=== PATIENT | female | born 1940 | race Caucasian/White ===

== ENCOUNTER 2022-06-21 14:40 | Inpatient (IN) | payer OTHER, MEDICAID ==
[~2022-06-21] VITALS: Ht 167.6 cm; Wt 54.0 kg
[2022-06-21] MEDS ORDERED: NACL 0.9% 1,000 ML IV SCH ×2 (14:50→17:45)
--- NOTE | 2022-06-21 14:56 | NUR ---
BIBA FROM SNF D/T LOW BP NOTED BY FACILITY WITH LOW O2 SAT. BP 88/34 ATBEDSIDE, O2 @ 96% RA AT BEDSIDE. AFEBRILE OF 96.5 RECTAL AT BEDSIDE. AAOX2, NONVERBAL, LEFT SIDED DEFICIT D/T STROKE HX. ON MONITOR, IV ESTABLISHED ON L AC 20G BY EMS CHARGER OPERATOR. NO WOUNDS NOTED, OLD FULLY HEALED SACRAL WOUND NOTED, NOT OPEN.
[2022-06-21 14:57] VITALS: BP 88/34
[2022-06-21 15:35] LABS: BASOPHILS % (AUTO) 0.2 % (0.0-2.0); EOSINOPHILS % (AUTO) 0.5 % (0.0-4.0); HEMATOCRIT 44.7 % (36-48); HEMOGLOBIN 14.5 g/dL (12.0-16.0); LYMPHOCYTES # (AUTO) 2.5 K/uL (2.5-16.5); LYMPHOCYTES % (AUTO) 29.2 % (20.5-51.1); MEAN CORPUSCULAR HEMOGLOBIN 30 pg (27-31); MEAN CORPUSCULAR HGB CONC 32 g/dL (33-37); MEAN CORPUSCULAR VOLUME 91.6 fL (80-94); MONOCYTES # (AUTO) 0.2 K/uL (0.8-1.0); MONOCYTES % (AUTO) 2.5 % (1.7-9.3); NEUTROPHILS # (AUTO) 5.7 K/uL (1.8-7.7); NEUTROPHILS % (AUTO) 67.6 % (42.2-75.2); PLATELET COUNT (AUTO) 206 K/uL (140-450); RED BLOOD CELL COUNT(AUTO) 4.88 MIL/uL (4.20-5.40); RED CELL DISTRIBUTION WIDTH 13.8 % (11.6-13.7); WHITE BLOOD COUNT (AUTO) 8.4 K/uL (4.8-10.8)
[2022-06-21] MEDS ORDERED: DOCU-299 PO (15:36)
[2022-06-21] MEDS ORDERED: ASPI-1822 PO (15:36)
[2022-06-21] MEDS ORDERED: ATOR40TA PO (15:36)
[2022-06-21] MEDS ORDERED: MIRT-91 PO (15:36)
[2022-06-21 15:45] LABS: PROTHROMBIN TIME 10.4 secs (10.8-13.4)
[2022-06-21 15:51] LABS: ALBUMIN 2.9 g/dL (3.4-5.0); ANION GAP 14.8 (8-16); ASPARTATE AMINOTRANSFERASE 25 U/L (15-37); CARBON DIOXIDE 26.9 mmol/L (21-32); CHLORIDE 107 mmol/L (98-107); CREATININE 0.9 mg/dL (0.6-1.3); GLUCOSE 170 mg/dL (74-106); POTASSIUM 3.7 mmol/L (3.5-5.1); SODIUM SERUM 145 mmol/L (136-145); TOTAL BILIRUBIN 0.5 mg/dL (0.0-1.0); UREA NITROGEN, BLOOD 15 mg/dL (7-18)
--- NOTE | 2022-06-21 16:15 | NUR ---
LEWIS INSERTED WITH 16FR
[2022-06-21] MEDS ORDERED: NACL 0.9% 1,000 ML IV ONE ×2 (16:30→17:50)
[2022-06-21] MEDS ORDERED: PIPERACILLIN/TAZOBACTAM 3.375 GM in DEXTROSE 5% 50 ML IV ONE (16:30)
[2022-06-21] MEDS ORDERED: VANCOMYCIN 1,000 MG in DEXTROSE 5% 250 ML IV ONE (16:30)
[2022-06-21] MEDS ORDERED: PIPERACILLIN/TAZOBACTAM 3.375 GM VIAL IV ONE ×2 (16:42→22:14)
[2022-06-21] MEDS ORDERED: VANCOMYCIN 1,000 MG VIAL ONE (16:42)
[2022-06-21 17:11] LABS: APPEARANCE,URINE HAZY (CLEAR); BILIRUBIN,URINE NEGATIVE (NEGATIVE); BLOOD, URINE 1+ (NEGATIVE); COLOR,URINE AMBER (YELLOW); LEUKOCYTE ESTERASE ,URINE 3+ (NEGATIVE); NITRITE, URINE POSITIVE (NEGATIVE); UGLUCOSE NEGATIVE (NEGATIVE)
[2022-06-21 17:28] LABS: OTHER CASTS, URINE None Seen /LPF (None Seen)
--- NOTE | 2022-06-21 17:44 | NUR ---
CONTACT INFO FOR SISTERSHANI [phone]
[2022-06-21] MEDS ORDERED: ONDANSETRON 4 MG/2 ML VIAL IVP PRN ×2 (17:45→17:55)
[2022-06-21] MEDS ORDERED: ACETAMINOPHEN 325 MG TAB PO PRN ×2 (17:45→17:55)
[2022-06-21] MEDS ORDERED: MORPHINE SULFATE 2 MG/ML SYR IVP PRN ×2 (17:45→17:55)
[2022-06-21] MEDS ORDERED: VANCOMYCIN PER PHARMACY MC PRN (17:50)
[2022-06-21] MEDS ORDERED: DOCUSATE SODIUM 100 MG GELCAP PO PRN (17:55)
[2022-06-21] MEDS ORDERED: POTASSIUM CHLORIDE 10 MEQ TABER PO PRN (17:55)
[2022-06-21] MEDS ORDERED: DEXTROSE 50% 50 ML SYR IVP PRN (17:55)
[2022-06-21] MEDS ORDERED: INSULIN LISPRO SLIDING SCALE 100 UNITS/ML VIAL SUBQ PRN (17:55)
[2022-06-21] MEDS ORDERED: ZOLPIDEM 10 MG TAB PO PRN (17:55)
--- NOTE | 2022-06-21 19:30 | NUR ---
receive awake, non-verbal. linens changed and positioned for comfort. F/C in place with no urine output noted
--- NOTE | 2022-06-21 21:00 | NUR ---
TRANSFERED TO 106A. REPORT GIVEN TO SAGAR RN/ PT ATTACHED TO CM, ACCOMPANIED BY RN AND ERT
--- NOTE | 2022-06-21 21:10 | NUR ---
ADMITTED THIS 82 YEAR OLD FEMALE FROM ER PER [facility] WITH CC OF HYPOXIA, TACHYCARDIA AND HYPOTENSION WITH DX OF SEPSIS, TRANSFERRED TO BED, ON O2 AT 2L VIA NASAL CANNULA WITH SAT OF 93%, BP-94/45, PT OPENS EYES BUT NONVERBAL, LEWIS CATHETER IN PLACE WITH CLEAR YELLOW URINE, IVF INFUSING WELL WITH NS AT 100ML/H, SKIN IS INTACT WITH HEALED SACRAL AND LEFT HIP ULCER, SACRAL AREA REDNESS NOTED, SITE COVERED WITH OPTIFOAM DRESSING, SAFETY MEASURES IN PLACE, FREQUENT ROUNDS WILL BE MADE, CALL LIGHT WITHIN REACH.
[2022-06-21 21:30] VITALS: BP 94/45
[2022-06-21] MEDS: BLOOD GLUCOSE MONITORING 1 DEV DEV FS SCH (21:53)
[2022-06-21] MEDS: PIPERACILLIN/TAZOBACTAM 3.375 GM in DEXTROSE 5% 50 ML IV SCH (22:24)
[2022-06-22] VITALS (16 sets, daily range): BP systolic 60–146; BP diastolic 28–75
[2022-06-22] MEDS ORDERED: MAG SULF 2000 MG/WATER PREMIX 50 ML IV PRN
[2022-06-22] MEDS: NACL 0.9% 1,000 ML IV SCH ×2 (00:15→09:30)
[2022-06-22] MEDS ORDERED: NACL 0.9% 1,000 ML IV SCH ×2 (03:35→08:25)
--- NOTE | 2022-06-22 03:45 | NUR ---
PT SLEEPING, OPEN EYES TO TOUCH, VITAL SIGNS TAKEN, BP-82/35, HR-102, SAT-94%, TEXTED DR GROVE AND GAVE NEW ORDERS, BOLUS OF NS 1 L STARTED, AND IF BP DOESN'T IMPROVE AFTER THE BOLUS, TRANSFER TO ICU AND START ON LEVOPHED DRIP, MONITORED CLOSELY.
--- NOTE | 2022-06-22 04:55 | NUR ---
1 L NS BOLUS DONE, BP-92/53, HR-90, SAT-95%, PT SLEEPING, OPEN EYES TO TOUCH, NO SOB NOTED, WILL CONTINUE TO MONITOR BLOOD PRESSURE CLOSELY, WILL ADMINISTER DUE ZOSYN IVPB AT THIS TIME.
[2022-06-22] MEDS ORDERED: PIPERACILLIN/TAZOBACTAM 3.375 GM VIAL IV ONE (05:00)
[2022-06-22] MEDS: PIPERACILLIN/TAZOBACTAM 3.375 GM in DEXTROSE 5% 50 ML IV SCH ×2 (05:02→13:00)
--- NOTE | 2022-06-22 06:00 | NUR ---
BP-86/33, HR-89, SAT-97%, CALLED ICU AND TALKED TO CHARGE NURSE YI FOR TRANSFER TO ICU AND START ON LEVOPHED DRIP, GAVE ICU BED 6 BUT STATED THEY WILL THE ROOM READY FIRST, WILL CALL WHEN THE TOOM IS READY, BLOOD SUGAR CHECKED WITH 122 RESULT, IVF INFUSING WELL, MONITORED CLOSELY.
[2022-06-22] MEDS: BLOOD GLUCOSE MONITORING 1 DEV DEV FS SCH ×4 (06:50→21:00)
--- NOTE | 2022-06-22 07:15 | NUR ---
PT TRANSFERRED TO ICU, REPORT GIVEN TO SJ METCALF, CALLED SISTER KIKI AND LEFT MESSAGE THAT PT GOT TRANSFERRED TO ICU DUE TO LOW BP.
[2022-06-22 07:29] LABS: BASOPHILS % (AUTO) 0.2 % (0.0-2.0); HEMATOCRIT 37.4 % (36-48); HEMOGLOBIN 12.3 g/dL (12.0-16.0); LYMPHOCYTES # (AUTO) 2.1 K/uL (2.5-16.5); LYMPHOCYTES % (AUTO) 19.9 % (20.5-51.1); MEAN CORPUSCULAR HEMOGLOBIN 30 pg (27-31); MEAN CORPUSCULAR HGB CONC 33 g/dL (33-37); MEAN CORPUSCULAR VOLUME 92.4 fL (80-94); MONOCYTES # (AUTO) 0.6 K/uL (0.8-1.0); MONOCYTES % (AUTO) 5.6 % (1.7-9.3); NEUTROPHILS # (AUTO) 7.7 K/uL (1.8-7.7); NEUTROPHILS % (AUTO) 74.3 % (42.2-75.2); PLATELET COUNT (AUTO) 154 K/uL (140-450); RED BLOOD CELL COUNT(AUTO) 4.05 MIL/uL (4.20-5.40); RED CELL DISTRIBUTION WIDTH 13.9 % (11.6-13.7); WHITE BLOOD COUNT (AUTO) 10.3 K/uL (4.8-10.8)
--- NOTE | 2022-06-22 07:30 | NUR ---
Transfer to ICU Received report on pt. Pt awake, nonverbal, does not follow commands. Pt transfer to ICU for hypotension, received pt with SBP 60s-70s. IV site intact, patent. Noted sites with previous pressure injuries. Noted left sided weakness and contracture on left UE. Clark in place draining yellow urine to gravity.
[2022-06-22 07:59] LABS: ANION GAP 12.5 (8-16); CARBON DIOXIDE 23.7 mmol/L (21-32); CHLORIDE 112 mmol/L (98-107); CREATININE 0.9 mg/dL (0.6-1.3); GLUCOSE 93 mg/dL (74-106); POTASSIUM 3.2 mmol/L (3.5-5.1); SODIUM SERUM 145 mmol/L (136-145); UREA NITROGEN, BLOOD 16 mg/dL (7-18)
[2022-06-22] MEDS: NOREPINEPHRINE 4 MG in DEXTROSE 5% 250 ML IV PRN ×2 (08:00→18:15)
--- NOTE | 2022-06-22 08:40 | NUR ---
Pt's sister, Naomie, returned call to unit and informed regarding pt's status and need for PICC line. Naomie states she discussed with pt's sisters regarding plan of care and consented to PICC line insertion.
--- NOTE | 2022-06-22 09:00 | NUR ---
Pt received additional 1L NS bolus per Dr. Sullivan's orders. Pt still noted with SBP in 80s post bolus infusion, started on levophed drip.
--- NOTE | 2022-06-22 09:03 | NUR ---
PATIENT HAS BEEN SCREENED AND CATEGORIZED HIGH NUTRITION RISK. PATIENT WILL BE SEEN WITHIN 1-2 DAYS OF ADMISSION. CHRISTEL TRAVIS RD
--- NOTE | 2022-06-22 10:30 | NUR ---
Pt given small portion of breakfast, noted little appetite and drowsiness.
--- NOTE | 2022-06-22 11:15 | NUR ---
PICC line nurse at bedside for PICC line insertion
--- NOTE | 2022-06-22 13:19 | NUR ---
dc planning nohemi outreached to [facility] to speak with lit (admin) to gather collateral information. Lit unavailable, nohemi to follow up. nohemi outreached to sister, teresita, to gather collateral information, however, no answer. Addendum: 06/22/22 at 1603 by Eduardo MENDOZA SW OUTREACHED TO [facility] AND SPOKE WITH ADMIN, LIT. LIT REPORTS THAT PATIENT HAS BEEN IN LONG TERM CARE WITH FACILITY SINCE Sep. PATIENTS BASELINE IS NONVERBAL. PT IS WC BOUND AND REQUIRES ASSISTANCE WITH ALL ADL'S. LIT REPORTS THAT PT'S SISTERS ARE HIGHLY INVOLVED AND VISIT WITH PATIENT WEEKLY. PATIENT IS FOLLOWED BY AT [facility]. LIT REPORTS DC PLAN IS FOR PATIENT TO RETURN TO ONCE CLINICALLY STABLE
--- NOTE | 2022-06-22 13:46 | NUR ---
PT. WITH LOW YAYA SCALE AT MODERATE TO HIGH RISK, CONTINUE TO FOLLOW PRESSURE INJURY PREVENTION INTERVENTIONS. -POSITIONING: TURN AND REPOSITION PATIENT Q 2H OR SOONER USE PILLOWS TO KEEP BONY PROMINENCES FROM DIRECT CONTACT WITH SURFACES USE REPOSITIONING WEDGES TO PROVIDE 30-DEGREE ANGLE FOR SIDE LYING POSITIONS OFFLOADING OR FOAM DRESSING TO ALL TUBING TO PREVENT MEDICAL DEVICES RELATED PRESSURE INJURY -RE-EVALUATING AND MANAGING INCONTINENCE MONITOR SKIN CONDITION DURING POSITION CHANGE DO NOT MASSAGE REDNESS, BONY PROMINENCES FREQUENT ESTER-CARE AND PROVIDE BARRIER CREAMS PRN IF SOILING MOISTURE CONTROL BY OFFER BED ROCHA/URINAL /ABSORBENT PAD TO WICK AND HOLD MOISTURE KEEP SKIN DRY AND PROTECT FROM FRICTION -MANAGE FRICTION/SHEAR/MOBILITY KEEP HOB AT THE LOWEST LEVEL OF ELEVATION NO MORE THAN 30 DEGREE UNLESS OTHERWISE CONTRAINDICATED USE LIFT SHEET OR TRANSFER DEVICE TO MOVE PATIENT AND PREVENT LATERAL SHEER. PROTECT HEELS, ELBOWS BONY PROMINENCES WITH SKIN BERRIES OR FOAM DRESSING IF EXPOSED TO FRICTION OFFLOAD BILATERAL HEELS BY PLACING PILLOWS UNDER CALVES AT ALL TIMES, UNLESS OTHERWISE CONTRAINDICATED -PRESSURE REDISTRIBUTION SURFACE THERAPY RENEE ISOFLEX MATTRESS -NUTRITION: PLEASE FOLLOW RD RECOMMENDATIONS AND OFFER NUTRITION SUPPLEMENTS IF ORDERED. PLEASE CONTACT WOUND CARE NURSE FOR ANY QUESTION AND CHANGE OF WOUND CONDITION.
--- NOTE | 2022-06-22 14:56 | NUR ---
06/22/22 RD INITIAL ASSESSMENT COMPLETED PLEASE REFER TO NUTRITION ASSESSMENT UNDER CARE ACTIVITY FOR ESTIMATED NUTRITIONAL NEEDS. 1. CONTINUE PUREE DIET TOLERATED 2. RECOMMEND GLUCERNA TID FOR NUTRITION SUPPORT -GLUCERNA TO PROVIDE: 660 KCAL + 30 G PROTEIN, DAILY 3. MONITOR PO INTAKE -IF CONTINUES TO BE < 25%, RECOMMEND FULL LIQUID DIET OR SWALLOW EVAL 4. RD TO FOLLOW-UP 2-3 DAYS, HIGH RISK REVIEWED BY CHRISTEL TRAVIS RD
[2022-06-22] MEDS ORDERED: KCL 20 MEQ/WATER INJ PREMIX 200 ML IV SCH (16:00)
--- NOTE | 2022-06-22 16:36 | NUR ---
DC PLANNIN YRS OLD FEMALE PATIENT WAS ADMITTED FROM [facility] WITH A DX OF SEPSIS. PATIENT HAS A HX OF CVA WITH LEFT SIDED WEAKNESS, A-FIB DM, STAGE III SACRAL ULCER AND DEMENTIA. CXR SHOWED LEFT LOWER LOBE PNEUMONIA. CT ABD NON OBSTRUCTIVE UROPATHY. CT HEAD MODERATE CEREBRAL ATROPHY. CT CHEST NO PE. ADMINISTERED IVF IV ABX MERREM AND ON LEVOPHED DRIP FOR LOW BP. CONSULTED WITH PULMO AND ID. DC PLAN TO RETURN TO [facility]. CM TO FOLLOW Addendum: 06/26/22 at 1454 by Salud Thomson RN DC PLANNING: PATIENT HAS AN ORDER TO RETURN TO [facility] . CALLED [facility] SPOKE WITH LIT STATED PATIENT CAN GO TO ROOM 13A. # TO GIVE REPORT [phone] [facility] TRANSPORT WITH [facility] [phone] SPOKE WITH CHRIS REF #[id number] BOILER ENGINEER TIME AROUND 4:30 PM. NOTIFIED WOJCIECH GUSTAFSON . ZABRINA TO FOLLOW
[2022-06-22] MEDS: VANCOMYCIN 1,000 MG in DEXTROSE 5% 250 ML IV SCH (18:12)
[2022-06-22] MEDS: MEROPENEM 1,000 MG in NACL 0.9% 50 ML IV SCH (21:11)
--- NOTE | 2022-06-22 21:57 | NUR ---
PATIENT AWAKE ALERT X2 02 ON 2LITERS N/C LUNGS DIMINISH ON MONITOR SINUS HAS UPPER RIGHT ARM PICC LINE HAS LEVOPHED INFUSING AT 4 MCG AND NS 100 HOUR. PATIENT HAS F/C\DRAINING YELLOW URINE BLOOD SUGAR 132 NO INSULIN GIVEN. PATIENT RECEIVED AT 2156 MAG. 2000MG IVPB. NO DISTRESS NOTED.
[2022-06-23] VITALS (16 sets, daily range): BP systolic 99–161; BP diastolic 13–96
[2022-06-23 06:46] LABS: BASOPHILS % (AUTO) 0.3 % (0.0-2.0); EOSINOPHILS % (AUTO) 0.3 % (0.0-4.0); HEMATOCRIT 33.7 % (36-48); HEMOGLOBIN 11.1 g/dL (12.0-16.0); LYMPHOCYTES # (AUTO) 1.8 K/uL (2.5-16.5); LYMPHOCYTES % (AUTO) 14.7 % (20.5-51.1); MEAN CORPUSCULAR HEMOGLOBIN 30 pg (27-31); MEAN CORPUSCULAR HGB CONC 33 g/dL (33-37); MEAN CORPUSCULAR VOLUME 91.2 fL (80-94); MONOCYTES # (AUTO) 0.5 K/uL (0.8-1.0); MONOCYTES % (AUTO) 3.8 % (1.7-9.3); NEUTROPHILS # (AUTO) 9.8 K/uL (1.8-7.7); NEUTROPHILS % (AUTO) 80.9 % (42.2-75.2); PLATELET COUNT (AUTO) 159 K/uL (140-450); RED BLOOD CELL COUNT(AUTO) 3.69 MIL/uL (4.20-5.40); RED CELL DISTRIBUTION WIDTH 13.8 % (11.6-13.7); WHITE BLOOD COUNT (AUTO) 12.1 K/uL (4.8-10.8)
[2022-06-23] MEDS: BLOOD GLUCOSE MONITORING 1 DEV DEV FS SCH ×4 (06:46→20:43)
--- NOTE | 2022-06-23 07:15 | NUR ---
RECEIVED REPORT FROM SANDER, SEARCH CONSULTANT CHEF KITCHEN MANAGER, FOR CONTINUITY OF CARE. PT A&OX1, PERRLA. 2L NC, RESPIRATIONS EVEN AND UNLABORED. SR ON MONITOR. DOUBLE LUMEN PICC TO CRISTIAN INFUSING LEVO AT 4 MCG/MIN. L FA 20G IV PATENT INFUSING NS AT 100 ML/HR. 2+ EDEMA TO BUE/BLE. BOWEL SOUNDS ACTIVE. F/C TO GRAVITY DRAINING CLEAR YELLOW URINE. GENERALIZED WEAKNESS. STANDARD PRECAUTION. CALL LIGHT WITHIN REACH, BED IN LOWEST POSITION.
[2022-06-23 07:24] LABS: ANION GAP 12.7 (8-16); CARBON DIOXIDE 19.4 mmol/L (21-32); CHLORIDE 113 mmol/L (98-107); CREATININE 0.6 mg/dL (0.6-1.3); GLUCOSE 120 mg/dL (74-106); POTASSIUM 3.1 mmol/L (3.5-5.1); SODIUM SERUM 142 mmol/L (136-145); UREA NITROGEN, BLOOD 10 mg/dL (7-18)
--- NOTE | 2022-06-23 07:40 | NUR ---
RECEIVED PT ON 2L NASAL CANNULA. SATURATION 99%
--- NOTE | 2022-06-23 08:40 | NUR ---
PT CONSUMED 25% OF BREAKFAST, PUREE DIET. 1:1 FEEDER. TOLERATED WELL. NO LONGER OPENED MOUTH TO FEEDING.
[2022-06-23] MEDS: MEROPENEM 1,000 MG in NACL 0.9% 50 ML IV SCH ×2 (09:20→20:43)
--- NOTE | 2022-06-23 09:30 | NUR ---
TITRATED LEVOPHED OFF. VSS.
--- NOTE | 2022-06-23 09:50 | NUR ---
SEEN AND EXAMINED BY DR. PARRA.
[2022-06-23] MEDS: NACL 0.9% 1,000 ML IV SCH (11:15)
[2022-06-23] MEDS: MUPIROCIN CA NASAL 2% 1GM TUBE NS SCH (12:04)
[2022-06-23] MEDS: CHLORHEXADINE GLUC 2% CLOTH TP SCH (12:04)
[2022-06-23] MEDS: POTASSIUM CHLORIDE 20% 40 MEQ/15 ML UDC GT PRN (12:05)
--- NOTE | 2022-06-23 13:00 | NUR ---
DECREASED APPETITE, CONSUMED ONLY 25% OF LUNCH.
[2022-06-23] MEDS: VANCOMYCIN 1,000 MG in DEXTROSE 5% 250 ML IV SCH (17:46)
--- NOTE | 2022-06-23 18:00 | NUR ---
RESTING COMFORTABLY IN BED, ALL COMFORT NEEDS MET AT THIS TIME.
--- NOTE | 2022-06-23 19:28 | NUR ---
ENDORSED REPORT TO SKI PRODUCTION SUPERVISOR OLIVIA GUSTAFSON FOR CONTINUITY OF CARE.
--- NOTE | 2022-06-23 19:30 | NUR ---
RECEIVED REPORT FROM SUNDAR AND PT IS IN STATED CONDITION. PT IS OFF LEVOPHED AND HER BLOOD [id number]/68. PT DOES NOT APPEAR TO BE IN DISTRESS. SHE HAS A CRISTIAN PICC LINE AND NS 100CC PER HOUR INFUISING SHE HAS +2 PITTING EDEMA TO BOTH FEET AND +1 PALPABLE PULSES. HER LEWIS CATH IS DRAINING CLEAR YELLOW URINE.
--- NOTE | 2022-06-23 21:00 | NUR ---
OFFERED PT NOURISHMENT BUT SHE REFUSED TO OPEN HER MOUTH. WILL TRY AGAIN.
--- NOTE | 2022-06-23 23:00 | NUR ---
OFFERED PT NOURISHMENT AGAIN;AGAIN SHE REFUSED AND TRAY WAS REMOVED FROM THE BEDSIDE.
[2022-06-24] VITALS (14 sets, daily range): BP systolic 111–177; BP diastolic 50–87
[2022-06-24 05:45] LABS: BASOPHILS % (AUTO) 0.3 % (0.0-2.0); EOSINOPHILS # (AUTO) 0.1 K/uL (0-0.4); EOSINOPHILS % (AUTO) 1.3 % (0.0-4.0); HEMATOCRIT 30.7 % (36-48); HEMOGLOBIN 10.2 g/dL (12.0-16.0); LYMPHOCYTES # (AUTO) 1.7 K/uL (2.5-16.5); LYMPHOCYTES % (AUTO) 15.1 % (20.5-51.1); MEAN CORPUSCULAR HEMOGLOBIN 30 pg (27-31); MEAN CORPUSCULAR HGB CONC 33 g/dL (33-37); MEAN CORPUSCULAR VOLUME 91.2 fL (80-94); MONOCYTES # (AUTO) 0.4 K/uL (0.8-1.0); MONOCYTES % (AUTO) 3.4 % (1.7-9.3); NEUTROPHILS # (AUTO) 8.9 K/uL (1.8-7.7); NEUTROPHILS % (AUTO) 79.9 % (42.2-75.2); PLATELET COUNT (AUTO) 129 K/uL (140-450); RED BLOOD CELL COUNT(AUTO) 3.36 MIL/uL (4.20-5.40); RED CELL DISTRIBUTION WIDTH 13.8 % (11.6-13.7); WHITE BLOOD COUNT (AUTO) 11.1 K/uL (4.8-10.8)
[2022-06-24 06:20] LABS: CARBON DIOXIDE 23.4 mmol/L (21-32); CHLORIDE 116 mmol/L (98-107); CREATININE 0.4 mg/dL (0.6-1.3); GLUCOSE 67 mg/dL (74-106); POTASSIUM 3.4 mmol/L (3.5-5.1); SODIUM SERUM 144 mmol/L (136-145); UREA NITROGEN, BLOOD 6 mg/dL (7-18)
--- NOTE | 2022-06-24 06:30 | NUR ---
DR. BAHENA ROUNDED ON PT THIS AM AND MADE HER A TRANSFER TO TELEMETRY
--- NOTE | 2022-06-24 07:30 | NUR ---
RECEIVED REPORT FROM SJ DAIGLE. TRANSFER OF CARE AT THIS TIME. PT IS A&OX0, APHASIC. ON NASAL CANNULA AT 2L SPO2 99%, RR EVEN AND UNLABORED, LEWIS IN PLACE, +2 PITTING EDEMA TO BLE, BLOOD SUGAR POC 52, PER PRN MD ORDERS GIVEN DEXTROSE 50 TO R UPPER PICC. NS RUNNING AT 100ML/HR. WILL CONTINUE TO MONITOR.
[2022-06-24] MEDS: BLOOD GLUCOSE MONITORING 1 DEV DEV FS SCH ×4 (07:37→21:00)
[2022-06-24] MEDS: NACL 0.9% 1,000 ML IV SCH (08:52)
[2022-06-24] MEDS: MEROPENEM 1,000 MG in NACL 0.9% 50 ML IV SCH (09:00)
--- NOTE | 2022-06-24 11:06 | NUR ---
DR PARRA AT PT BEDSIDE. VERBAL ORDER OF FLUIDS TO BE CHANGED TO D5NS AT 80ML/HR.
[2022-06-24] MEDS: MUPIROCIN CA NASAL 2% 1GM TUBE NS SCH (12:04)
[2022-06-24] MEDS: DEXT 5% / NACL 0.9% 1,000 ML IV SCH (12:05)
[2022-06-24] MEDS: CHLORHEXADINE GLUC 2% CLOTH TP SCH (12:20)
[2022-06-24] MEDS: VANCOMYCIN 1,000 MG in DEXTROSE 5% 250 ML IV SCH (18:15)
--- NOTE | 2022-06-24 19:28 | NUR ---
RECEIVED PT ON 2L NC SATING 99%. PT ASLEEP IN BED BUT AWAKENS UPON ENTRY. PT BREATH SOUNDS CLEAR. NO SIGNS OF RESP DISTRESS. WILL CONTINUE TO MONITOR.
--- NOTE | 2022-06-24 19:34 | NUR ---
GAVE REPORT TO SANDER, BOXING PROMOTER. TRANSFER OF CARE AT THIS TIME.
[2022-06-24] MEDS: PIPERACILLIN/TAZOBACTAM 3.375 GM in DEXTROSE 5% 50 ML IV SCH (21:00)
--- NOTE | 2022-06-24 23:55 | NUR ---
PATIENT AWAKE APHASIC CAN BE COMBATIVE PINCHING BITING. HITTING. WANT DRINK FLUIDS NEEDS A NGT. ON MONITOR SINUS. 98.5 TEMP. LUNGS DIMINISH GIVEN HEPARIN S.Q. PLT. 129 SAT. 100%.IVF D5 NS 80 HOUR. SITE PICC LINE. BLOOD SUGAR 69 NO INSULIN GIVEN.
[2022-06-25] VITALS: BP 145/73
[2022-06-25 04:00] VITALS: BP 140/66
[2022-06-25] MEDS: PIPERACILLIN/TAZOBACTAM 3.375 GM in DEXTROSE 5% 50 ML IV SCH ×3 (05:00→22:13)
[2022-06-25 05:39] LABS: BASOPHILS % (AUTO) 0.3 % (0.0-2.0); EOSINOPHILS # (AUTO) 0.3 K/uL (0-0.4); EOSINOPHILS % (AUTO) 4.1 % (0.0-4.0); HEMATOCRIT 32.6 % (36-48); HEMOGLOBIN 11.1 g/dL (12.0-16.0); LYMPHOCYTES # (AUTO) 1.7 K/uL (2.5-16.5); MEAN CORPUSCULAR HEMOGLOBIN 31 pg (27-31); MEAN CORPUSCULAR HGB CONC 34 g/dL (33-37); MEAN CORPUSCULAR VOLUME 89.8 fL (80-94); MONOCYTES # (AUTO) 0.4 K/uL (0.8-1.0); MONOCYTES % (AUTO) 5.2 % (1.7-9.3); NEUTROPHILS # (AUTO) 4.6 K/uL (1.8-7.7); NEUTROPHILS % (AUTO) 66.4 % (42.2-75.2); PLATELET COUNT (AUTO) 160 K/uL (140-450); RED BLOOD CELL COUNT(AUTO) 3.63 MIL/uL (4.20-5.40); RED CELL DISTRIBUTION WIDTH 13.8 % (11.6-13.7)
[2022-06-25 05:54] LABS: ANION GAP 10.3 (8-16); CARBON DIOXIDE 25.7 mmol/L (21-32); CHLORIDE 110 mmol/L (98-107); CREATININE 0.5 mg/dL (0.6-1.3); GLUCOSE 96 mg/dL (74-106); SODIUM SERUM 143 mmol/L (136-145); UREA NITROGEN, BLOOD 5 mg/dL (7-18)
[2022-06-25] MEDS: BLOOD GLUCOSE MONITORING 1 DEV DEV FS SCH ×4 (06:35→22:14)
[2022-06-25] MEDS: DEXT 5% / NACL 0.9% 1,000 ML IV SCH ×2 (07:00→13:00)
--- NOTE | 2022-06-25 07:30 | NUR ---
RECEIVED REPORT FROM GLASS ROBOT OPERATOR SJ BOUCHER.
[2022-06-25 08:00] VITALS: BP 158/73
--- NOTE | 2022-06-25 09:30 | NUR ---
PATIENT APHASIC, UNABLE TO MAKE NEEDS KNOWN. LUNGS CLEAR TO AUSCULTATION. ON 02 VIA NASAL CANULA. PUREE DIET. EDGE PLUGGER OFFERED TO FEED PATIENT HER BREAKFAST BUT SHE DID NOT WANT TO EAT. BOWEL SOUNDS ACTIVE. LEWIS CATHETER INTACT AND FLOWING WELL. SINUS RHYTHM. SALINE LOCK TO LEFT FOREARM. PICC LINE TO CRISTIAN. PATIENT HAS D5NS RUNNING AT 80ML/HR. NO S/SX OF PAIN AT THIS TIME.
[2022-06-25] MEDS: VANCOMYCIN 1,000 MG in DEXTROSE 5% 250 ML IV SCH (09:35)
[2022-06-25] MEDS: POTASSIUM CHLORIDE 20% 40 MEQ/15 ML UDC GT PRN (10:10)
--- NOTE | 2022-06-25 11:30 | NUR ---
WASTE RECLAIMER OFFERED PATIENT HER FOOD BUT SHE DOES NOT WANT TO EAT. PT WAS ABLE TO HAVE SIPS OF APPLE JUICE.
[2022-06-25 12:00] VITALS: BP 138/59
[2022-06-25] MEDS: MUPIROCIN CA NASAL 2% 1GM TUBE NS SCH (12:01)
[2022-06-25] MEDS: CHLORHEXADINE GLUC 2% CLOTH TP SCH (12:07)
--- NOTE | 2022-06-25 12:41 | NUR ---
PATIENT TOOK OFF HER NASAL CANULA. REFUSES TO PUT IT BACK ON AT THIS TIME. PATIENT 02 AT 92%.
--- NOTE | 2022-06-25 14:36 | NUR ---
06/25/22 RD FOLLOW UP COMPLETED PLEASE REFER TO NUTRITION ASSESSMENT UNDER CARE ACTIVITY FOR ESTIMATED NUTRITIONAL NEEDS. 1. RECOMMEND CLEAR LIQUID DIET, TOLERATED 2. CONTINUE WITH GLUCERNA TID AND PROSOURCE BID -GLUCERNA WILL PROVIDE: 660 KCAL + 30 G PROTEIN, DAILY -PROSOURCE WILL PROVIDE: 120 KCAL + 30 G OF PROTEIN, DAILY 3. MONITOR PO INTAKE 4. RD TO FOLLOW-UP 2-3 DAYS, HIGH RISK REVIEWED BY CHRISTEL TRAVIS RD
--- NOTE | 2022-06-25 15:25 | NUR ---
PATIENT TRANSFERRED TO [facility]. GAVE REPORT TO [facility] RN.
--- NOTE | 2022-06-25 16:10 | NUR ---
RECEIVED PT FROM ICU: RECEIVED PATIENT FROM ICU. BREATHING EVEN AND NON LABORED TO O2 AT 2L/NC. PICC LINE AT CRISTIAN INFUSING WELL. BED LOCKED, ALARM ON AND IN LOWEST POSITION. CALL LIGHT WITHIN REACH.
[2022-06-25 16:22] VITALS: BP 145/64
[2022-06-25 20:00] VITALS: BP 145/64
--- NOTE | 2022-06-25 20:11 | NUR ---
ROUNDS , O2 SAT 98 % , ON TELE MONITOR , NO S/SX OF ACUTE DISTRESS NOTED AT THIS TIME , WILL CONT. TO MONITOR .
[2022-06-26] VITALS: BP 130/72
--- NOTE | 2022-06-26 | NUR ---
ROUNDS , SLEEPING , BUT AROUSABLE BY TOUCH AND SOUNDS , BP 130/82 , HR 65 , T 98.8 , RR 18 , O2 SAT 98 % - WILL CONT. TO MONITOR , ON TELE MONITOR .
[2022-06-26] MEDS: DEXT 5% / NACL 0.9% 1,000 ML IV SCH ×2 (01:58→14:05)
--- NOTE | 2022-06-26 02:00 | NUR ---
SLEEPING , CHEST RISE AND FALL EQUALLY , NO S/SX OF ACUTE DISTRESS NOTED AT THIS TIME .
[2022-06-26] MEDS: VANCOMYCIN 1,000 MG in DEXTROSE 5% 250 ML IV SCH (03:30)
[2022-06-26 04:00] VITALS: BP 125/81
--- NOTE | 2022-06-26 04:00 | NUR ---
ROUNDS , NO S/SX OF ACUTE DISTRESS NOTED A T THIS TIME , OL2 SAT WNL .
[2022-06-26] MEDS: PIPERACILLIN/TAZOBACTAM 3.375 GM in DEXTROSE 5% 50 ML IV SCH ×2 (05:49→13:00)
--- NOTE | 2022-06-26 06:11 | NUR ---
AWAKE , O2 SAT WNL
[2022-06-26] MEDS: BLOOD GLUCOSE MONITORING 1 DEV DEV FS SCH ×3 (06:51→16:30)
[2022-06-26 07:06] LABS: BASOPHILS % (AUTO) 0.4 % (0.0-2.0); EOSINOPHILS # (AUTO) 0.2 K/uL (0-0.4); EOSINOPHILS % (AUTO) 2.8 % (0.0-4.0); HEMATOCRIT 32.3 % (36-48); LYMPHOCYTES # (AUTO) 2.1 K/uL (2.5-16.5); LYMPHOCYTES % (AUTO) 33.2 % (20.5-51.1); MEAN CORPUSCULAR HEMOGLOBIN 30 pg (27-31); MEAN CORPUSCULAR HGB CONC 34 g/dL (33-37); MEAN CORPUSCULAR VOLUME 89.1 fL (80-94); MONOCYTES # (AUTO) 0.6 K/uL (0.8-1.0); MONOCYTES % (AUTO) 9.2 % (1.7-9.3); NEUTROPHILS # (AUTO) 3.4 K/uL (1.8-7.7); NEUTROPHILS % (AUTO) 54.4 % (42.2-75.2); PLATELET COUNT (AUTO) 186 K/uL (140-450); RED BLOOD CELL COUNT(AUTO) 3.63 MIL/uL (4.20-5.40); RED CELL DISTRIBUTION WIDTH 13.8 % (11.6-13.7); WHITE BLOOD COUNT (AUTO) 6.3 K/uL (4.8-10.8)
[2022-06-26 07:30] LABS: ANION GAP 9.8 (8-16); CHLORIDE 110 mmol/L (98-107); CREATININE 0.6 mg/dL (0.6-1.3); GLUCOSE 131 mg/dL (74-106); SODIUM SERUM 143 mmol/L (136-145); UREA NITROGEN, BLOOD 4 mg/dL (7-18)
--- NOTE | 2022-06-26 07:30 | NUR ---
ENDORSED - PT - STABLE.
--- NOTE | 2022-06-26 07:30 | NUR ---
RECEIVED REPORT FROM NIGHTSHIFT NURSE. PT AWAKE AND ALERT. NONVERBAL. HOB ELEVATED. NO SOB OR RESPIRATORY DISTRESS. ON 2L NC WITH O2 SATURATION @ 96%. IN NO ACUTE DISTRESS. NO FACIAL GRIMACING. LEWIS VIA GRAVITY. D5NS @ 80 ON R UA PICC DOUBLE LUMEN. NEEDS ALL MET AT THIS TIME. FALL PRECAUTIONS IN PLACE. SAFETY MEASURES IN PLACE.
[2022-06-26 07:35] LABS: POTASSIUM 2.8 mmol/L (3.5-5.1)
[2022-06-26] MEDS ORDERED: VANCOMYCIN PER PHARMACY MC PRN (07:55)
[2022-06-26 08:00] VITALS: BP 154/77
--- NOTE | 2022-06-26 09:44 | NUR ---
CONTACTED REGARDING KRIDER WITH LIDOCAINE ORDER. NEW ORDERS INPUTTED.
[2022-06-26] MEDS ORDERED: ROC1PM IV (10:36)
[2022-06-26] MEDS ORDERED: POTASSIUM CHLORIDE 40 MEQ, LIDOCAINE MPF 1% 25 MG in NACL 0.9% 250 ML IV SCH (11:00)
[2022-06-26] MEDS: MUPIROCIN CA NASAL 2% 1GM TUBE NS SCH (11:38)
[2022-06-26] MEDS: CHLORHEXADINE GLUC 2% CLOTH TP SCH (11:38)
[2022-06-26 12:00] VITALS: BP 150/64
--- NOTE | 2022-06-26 13:30 | NUR ---
PT OFF UNIT TO THORACENTESIS. Addendum: 06/26/22 at 1408 by Jet Acuña RN RN WRONG PATIENT
[2022-06-26 15:18] VITALS: BP 150/64
--- NOTE | 2022-06-26 15:28 | NUR ---
REPORT GIVEN TO NURSE SCOTT FROM [facility].
--- NOTE | 2022-06-26 15:30 | NUR ---
CONTACTED CHELA (SISTER) WITH DISCHARGE INSTRUCTIONS VERBALIZED UNDERSTANDING.
--- NOTE | 2022-06-26 15:32 | NUR ---
CONTACTED REGARDING LEWIS CATHETER REMOVAL BEFORE DISCHARGE. STATES "OK TO LEAVE LEWIS".
[2022-06-26 16:00] VITALS: BP 135/62
--- NOTE | 2022-06-26 18:15 | NUR ---
PT STABLE. PT TRANSPORTED OUT VIA [facility].
== END 2022-06-26 19:02 | DRG 871 ==
LOC: MED 14:40 → MTU 17:48 → MIC 06-22 07:53 → MTU 06-25 15:00
PROVIDERS: ADMIT Family Medicine; ATTEND Family Medicine
PROC: 02HV33Z Insertion of Infusion Device into Superior Vena Cava, Percutaneous Approach (ICD-10-PCS; principal; 2022-06-22)
PROC: B548ZZA Ultrasonography of Superior Vena Cava, Guidance (ICD-10-PCS; 2022-06-22)
DX: A41.50 Gram-negative sepsis, unspecified (principal); G93.41 Metabolic encephalopathy; L89.153 Pressure ulcer of sacral region, stage 3; J69.0 Pneumonitis due to inhalation of food and vomit; R65.21 Severe sepsis with septic shock; J96.01 Acute respiratory failure with hypoxia; N39.0 Urinary tract infection, site not specified; G91.9 Hydrocephalus, unspecified; I69.354 Hemiplegia and hemiparesis following cerebral infarction affecting left non-dominant side; I48.91 Unspecified atrial fibrillation; I10 Essential (primary) hypertension; E11.649 Type 2 diabetes mellitus with hypoglycemia without coma; D64.9 Anemia, unspecified; F03.90 Unspecified dementia, unspecified severity, without behavioral disturbance, psychotic disturbance, mood disturbance, and anxiety; E87.6 Hypokalemia; E83.51 Hypocalcemia; Z20.822 Contact with and (suspected) exposure to COVID-19; Z79.82 Long term (current) use of aspirin; Z79.899 Other long term (current) drug therapy; Z79.4 Long term (current) use of insulin
CPT/HCPCS: 36415; 36600; 70450; 71045; 71275; 80048; 80053; 80202; 81001; 82550; 82553; 82803; 82948; 83605; 83735; 83880; 84484; 85025; 85610; 85730; 87040; 87081; 87086; 93005; 96361; 96365; 96368; 99291; J1644; J1815; J2001; J2185; J2543; J3370; J3475; J3480; J3490; J7030; J7060; Q0092; Q9967